=== PATIENT | male | born 1975 | race Caucasian/White ===

== ENCOUNTER 2020-07-07 16:00 | Outpatient (REF) | payer BC, SELFPAY ==
--- NOTE | 2020-07-07 16:16 | XR_ITS ---
EXAMINATION: XR CHEST CLINICAL INFORMATION: Shortness of breath COMPARISON: None TECHNIQUE: 2 views of the chest were obtained. FINDINGS: There is no evidence of acute parenchymal disease, pneumothorax, or pleural effusion. Heart normal size. No evidence of pulmonary edema. There is a rounded density seen overlying the left heart which I do not definitely identified on lateral view question whether this may lie extraneous to the patient. I do not definitely see a hiatal hernia on lateral view and I do not definitely make out a posterior mediastinal mass. XR/XR chest 2V IMPRESSION: No definite acute parenchymal disease. Rounded circumscribed density overlying the left heart not seen on lateral view and may be external to the patient. Clinical evaluation and possible repeat of PA film of the chest could be considered.
[2020-07-07 16:47] LABS: MANUAL DIFF FLAG NO
[2020-07-07 16:49] LABS: Basophils Absolute Auto 0.1 X10*3/uL (0.0-0.2); Basophils Percent Auto 0.7 % (0-2); Eosinophils Absolute Auto 0.2 X10*3/uL (0.0-0.4); Eosinophils Percent Auto 2.6 % (0-4); Hematocrit 44.7 % (42-52); Hemoglobin 14.3 g/dl (14.0-18.0); Imm Gran Abs Auto 0.05 X10*3/uL (0.00-0.03); Imm Gran Pct Auto 0.6 % (0.0-0.4); Lymphocytes Absolute Auto 2.5 X10*3/uL (1.2-4.9); Lymphocytes Percent Auto 29.3 % (20-40); Mean Corpuscular Hemoglobin 28.9 pg (27.0-33.0); Mean Corpuscular Volume 90.3 fL (80-98); Mean Platelet Volume 11.1 fL (9.4-12.4); Monocytes Absolute Auto 0.9 X10*3/uL (0.1-1.2); Neutrophils Absolute Auto 4.7 X10*3/uL (2.0-8.3); Neutrophils Percent Auto 55.8 % (45-73); Platelet Count 183 X10*3/uL (160-400); Red Blood Count 4.95 X10*6/uL (4.60-5.80); Red Cell Distribution Width 12.3 % (11.0-16.0); White Blood Count 8.5 X10*3/uL (4.8-10.8)
[2020-07-07 17:16] LABS: Alanine Aminotransferase 34 U/L (0-40); Albumin Level 4.6 g/dL (3.5-5.0); Alkaline Phosphatase 83 U/L (39-117); Anion Gap 11 (12-20); Aspartate Amino Transferase 19 U/L (5-37); Bilirubin Total 0.5 mg/dL (0.0-1.0); Blood Urea Nitrogen 16 mg/dL (9-16); C Reactive Protein 0.58 mg/dL (< or = 0.50); Calcium 9.1 mg/dL (8.4-10.2); Carbon Dioxide 34 mmol/L (22-29); Chloride 103 mmol/L (96-108); Estimated Glomerular Filt Rate > 60; Glucose Random 100 mg/dL (60-115); Potassium 4.3 mmol/l (3.3-5.1); Sodium 144 mmol/L (135-145); Total Protein 7.3 g/dL (6.5-8.0)
== END 2020-07-07 16:01 | disposition home or self-care (01) ==
LOC: HO.LAB 16:00
PROVIDERS: PCP Internal Medicine; Visit Provider Internal Medicine
DX: R06.02 Shortness of breath (principal); K21.9 Gastro-esophageal reflux disease without esophagitis
CPT/HCPCS: 36415; 71046; 80053; 85025; 86140

== ENCOUNTER 2020-07-29 10:46 | Outpatient (REF) | payer BC, SELFPAY ==
--- NOTE | ~2020-07-29 | CT_ITS ---
EXAMINATION: CT CHEST WITHOUT CONTRAST CLINICAL INFORMATION: Chest pain. Shortness of breath. COMPARISON: Previous chest x-ray 07/07/2020 TECHNIQUE: Multidetector volumetric CT imaging of the chest was done. Axial MIP volume rendering provided. Sagittal and coronal reformatted images were obtained. This CT examination was performed using dose optimization techniques as appropriate, variously including the following: *Automated exposure control *Adjustment of mA and/or kV according to patient size (this includes techniques or standardized protocols for targeted exams where dose is matched to indication/reason for exam; i.e. extremities or head) *Use of iterative reconstruction technique DLP: 248 mGy-cm FINDINGS: LUNGS: There is a 2 mm calcified right upper lobe nodule axial image 121 series 5. There is a 2 mm left upper lobe nodule axial image 166 series 5. There is a 2 mm peripheral or subpleural right upper lobe nodule adjacent to the minor fissure axial image 238 series 5. MEDIASTINUM: The mediastinum is normal. PLEURA: There is no pleural effusion. No pleural mass or thickening. AXILLA: No lymphadenopathy. UPPER ABDOMEN: There is mild diverticulosis of the colon. OSSEOUS STRUCTURES: Unremarkable. CT/CT chest wo con IMPRESSION: Small 2 mm calcified and noncalcified pulmonary nodules. Mild diverticulosis of the colon. According to the UPDATED 2017 Fleischner Society recommendations, the advised follow-up imaging for less than 6 mm pulmonary nodule: Low risk, no chest CT follow-up needed and high risk, optional chest CT follow-up in one year.
== END 2020-07-29 10:47 | disposition home or self-care (01) ==
LOC: HO.CT 10:46
PROVIDERS: PCP Internal Medicine; Visit Provider Internal Medicine
DX: R07.9 Chest pain, unspecified (principal); R06.02 Shortness of breath
CPT/HCPCS: 71250

== ENCOUNTER 2021-06-19 15:13 | Outpatient (REF) | payer BC, SELFPAY ==
[2021-06-19 16:09] LABS: Influenza A PCR NEGATIVE (Negative); Influenza B PCR NEGATIVE (Negative); Resp Syncy Virus RNA Qual PCR NEGATIVE (Negative); SARS COV2 PCR INHOUSE POSITIVE (Negative)
== END 2021-06-19 15:14 | disposition home or self-care (01) ==
LOC: HO.LNP 15:13
PROVIDERS: Visit Provider Internal Medicine
DX: Z20.822 Contact with and (suspected) exposure to COVID-19 (principal)
CPT/HCPCS: 0241U

== ENCOUNTER 2024-07-18 10:41 | Outpatient (REF) | payer OTHER, SELFPAY ==
[2024-07-18 10:57] LABS: MANUAL DIFF FLAG NO
[2024-07-18 11:25] LABS: Basophils Absolute Auto 0.1 X10*3/uL (0.0-0.2); Basophils Percent Auto 0.9 % (0-2); Eosinophils Absolute Auto 0.1 X10*3/uL (0.0-0.4); Eosinophils Percent Auto 2.1 % (0-4); Hematocrit 45.7 % (42.0-52.0); Hemoglobin 15.5 g/dl (14.0-18.0); Imm Gran Abs Auto 0.03 X10*3/uL (0.00-0.03); Imm Gran Pct Auto 0.5 % (0.0-0.4); Lymphocytes Absolute Auto 2.3 X10*3/uL (1.2-4.9); Lymphocytes Percent Auto 40.2 % (20-40); Mean Corpuscular HGB Conc 33.9 g/dl (31.0-36.0); Mean Corpuscular Hemoglobin 29.5 pg (27.0-33.0); Mean Corpuscular Volume 86.9 fL (80.0-98.0); Mean Platelet Volume 10.9 fL (9.4-12.4); Monocytes Absolute Auto 0.5 X10*3/uL (0.1-1.2); Neutrophils Absolute Auto 2.8 x10*3/uL (2.0-8.3); Neutrophils Percent Auto 48.3 % (45-73); Platelet Count 173 X10*3/uL (160-400); Red Blood Count 5.26 X10*6/uL (4.60-5.80); Red Cell Distribution Width 12.4 % (11.0-16.0); White Blood Count 5.7 X10*3/uL (4.8-10.8)
[2024-07-18 11:51] LABS: Alanine Aminotransferase 34 U/L (0-40); Albumin Level 4.4 g/dL (3.5-5.0); Alkaline Phosphatase 78 U/L (39-117); Anion Gap 14 (12-20); Aspartate Amino Transferase 24 U/L (5-37); Bilirubin Total 0.5 mg/dL (0.0-1.0); Blood Urea Nitrogen 18 mg/dL (9-16); Calcium 9.3 mg/dL (8.4-10.2); Carbon Dioxide 27 mmol/L (22-29); Chloride 106 mmol/L (96-108); Cholesterol 150 mg/dL (<200); Estimated Glomerular Filt Rate > 60; Glucose Fasting 94 mg/dL (60-99); HDL Cholesterol 39 mg/dL (>40); LDL Cholesterol Calculated 92 mg/dL (<100); Potassium 4.9 mmol/L (3.3-5.1); Sodium 142 mmol/L (135-145); Total Protein 7.6 g/dL (6.5-8.0); Triglycerides 98 mg/dL (<150)
[2024-07-18 12:19] LABS: Prostate Specific Antigen 0.26 ng/mL (<0.05-4.0)
== END 2024-07-18 10:42 | disposition home or self-care (01) ==
LOC: HO.LAB 10:41
PROVIDERS: PCP Internal Medicine; Visit Provider Internal Medicine
DX: K21.9 Gastro-esophageal reflux disease without esophagitis (principal); E66.9 Obesity, unspecified; Z12.5 Encounter for screening for malignant neoplasm of prostate
CPT/HCPCS: 36415; 80053; 80061; 84153; 85025

== ENCOUNTER 2024-10-05 15:03 | Outpatient (AMB) | payer OTHER, SELFPAY ==
--- NOTE | 2024-10-05 16:00 | AM.OFFWIN_ITS ---
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 Patient Tobacco Use Status: Never used Tobacco Allergies No Known Allergies Allergy (Unverified 10/05/24 16:02) Do you need a note to return to daycare/school/sports/work: Yes HPI HPI Comments History of Present Illness Details 49 y/o Male patient who presents to the walk in clinic with c/o Left sided Jaw Pain and sore-throat since Saturday. Describes the pain as Discomfort and rates it at 2/10. He does c/o GERD symptoms, and he has been eating Spicy food lately. [facility] Medical History (Updated 10/05/24 @ 17:12 by Shelly Julien NP) Cerumen impaction Tonsillar calculus Social History Patient Tobacco Use Status: Never used Tobacco Review of Systems Const All systems reviewed & are unremarkable except as noted in HPI and below Physical Exam Vital Signs: Last Vital Signs Pulse 102 H 10/05/24 16:01 BP 130/90 H 10/05/24 16:01 Pulse Ox 96 10/05/24 16:01 Oxygen Delivery Method Room Air 10/05/24 16:01 Const General: no acute distress Nutritional Appearance: obese Orientation/consciousness: patient oriented x3 HEENT Head: Yes normocephalic Ears: external ears normal and TM abnormal obstructed by cerumen bilateral General nose exam: Normal external nose present Face and sinus: Yes sinuses nontender Mouth: tongue normal, moist mucous membranes and Abnormal oral and palatal mucosa present erythematous and other (White small Stones back throat left side) Throat: Yes uvula midline, Yes abnormal tonsil (Left Tonsil enlarged +3 ), No peritonsillar mass and Yes postnasal drainage Neuro General: patient oriented x3, gait normal and moves all extremities Psych Speech and movement: Normal speech and movement present Assessment & Plan Assessment & Plan (1) Tonsillar calculus: Code(s): J35.8 - Other chronic diseases of tonsils and adenoids Plan: Left Tonsil enlarged, presence of Tonsil Stones. Educated on Proper Oral Hygiene. Ordered Prednisone for swelling NSAIDs for pain relief. Avoid Spicy foods. (2) Cerumen impaction: Code(s): H61.20 - Impacted cerumen, unspecified ear Qualifiers: Laterality: bilateral Qualified Code(s): H61.23 - Impacted cerumen, bilateral Plan: Advised the use of Debrox OTC RTC for B/L Ear Lavage. Medications: New prednisone 20 mg PO DAILY 5 tabs 0RF 5 days J35.8 - Other chronic diseases of tonsils and adenoids Coding Level of Care Code Est Pt Level 4 (01108) Diagnoses Tonsillar calculus J35.8 Bilateral impacted cerumen H61.23 Laterality: bilateral Time Spent (min) 20
[2024-10-05 16:01] VITALS: BP 130/90; PULSE 102; O2SAT 96
== END 2024-10-05 16:45 | disposition home or self-care (01) ==
PROVIDERS: PCP Internal Medicine; Visit Provider Nurse Practitioner Family
DX: J35.8 Other chronic diseases of tonsils and adenoids (principal); H61.23 Impacted cerumen, bilateral

== ENCOUNTER → 2024-10-05 15:03 | Outpatient (BNVA) | payer OTHER, SELFPAY | PROVIDERS: PCP Internal Medicine; Visit Provider Nurse Practitioner Family | DX: Z13.89 Encounter for screening for other disorder (principal) ==

== ENCOUNTER 2024-10-09 11:21 | Outpatient (AMB) | payer OTHER, SELFPAY ==
--- NOTE | 2024-10-09 11:33 | AM.OFFWIN_ITS ---
Intake Vital Signs 10/09/24 11:37 Height 5 ft 7.5 in Weight 225 lb BMI 34.7 BP 128/82 Blood Pressure Location Lt brachial Position Sitting Respiration 16 Pulse 82 Pulse Source Pulse Oximeter Temp 98.1 F Temp Source Oral Pulse Oximetry (%) 97 Oxygen Delivery Method Room Air Intake Visit Reasons: EP re-check ears Intake Note: Pt is here today for his to recheck bilateral ears Patient Tobacco Use Status: Never used Tobacco Allergies No Known Allergies Allergy (Unverified 10/09/24 11:37) HPI HPI Comments History of Present Illness Details History - The patient is a 49-year-old male pres enting with concerns of blocked ears. - The patient experienced a sensation of blockage over the weekend, which led to this visit. - He received Prednisone previously due to tonsillar swelling over a past visit. - The patient reported multiple surgerie s on the right ear for recurring polyps but has an inconsistent history of using ear drops. - There is no reported pain or significa nt changes in hearing. Physical Exam General: Cooperative, healthy appearing, comfortable and no acute distress Orientation/consciousness: Patient oriented x3 Limitations: No limitations Head: Normal to inspection Ears: Hearing grossly normal bilaterally, external ears normal and TM's normal bilaterally, but obstructed with cerumen Nose: Normal external nose present, Normal nares present and No nasal discharge present Face and sinus: Normal facial exam Eyes: Appearance normal, both eyes and all related structures Neck: Normal visual inspection Respiratory: Normal respiratory effort, able to speak in complete sentences, no respiratory distress, not tachypneic, no tripod positioning and no use of accessory muscles Skin: No rashes or lesions noted Neuro: Patient oriented x3 Extremities: Normal to inspection and Yes no clubbing, cyanosis or edema [facility] Medical History (Updated 10/05/24 @ 17:12 by Shelly Julien NP) Cerumen impaction Tonsillar calculus Social History Patient Tobacco Use Status: Never used Tobacco Review of Systems Const All systems reviewed & are unremarkable except as noted in HPI and below Physical Exam Vital Signs: Last Vital Signs Temp 98.1 F 10/09/24 11:37 Pulse 82 10/09/24 11:37 Resp 16 10/09/24 11:37 BP 128/82 10/09/24 11:37 Pulse Ox 97 10/09/24 11:37 Oxygen Delivery Method Room Air 10/09/24 11:37 BMI result Body Mass Index 34.7 Office Procedures Cerumen Removal Details: able to remove from left ear completely, a small amount left in right ear and pt requested we stop. He will use Debrox drops and come back if further flushing is needed. From which ear canal was the cerumen removed: bilateral Removal: irrigation and otoscope w/curette Notes: patient tolerated procedure well, no complications and ear canal clear 54302-Ion Irrigation/Lavage Assessment & Plan Assessment & Plan (1) Cerumen impaction: Code(s): H61.20 - Impacted cerumen, unspecified ear Qualifiers: Laterality: bilateral Qualified Code(s): H61.23 - Impacted cerumen, bilateral Plan: During this visit, I focused on addressing the impacted cerumen causing the sensation of ear blockage. The use of Debrox drops was recommended to facilitate the breakdown of the wax. An ear flushing was performed in our clinic to attempt removal of the cerumen. Able to remove all the cerumen in left ear, some residual in right ear. Considering the patient's history of recurrent ear polyps and prior surgeries, he was advised on regular ear care to reduce future occurrences. No pain or hearing loss was reported. The patient agreed to use the Debrox drops consistently and follow up to confirm resolution. Patient was informed and verbally consented to the use of an ambient scribe for clinic note documentation during this visit Orders: Orders AMB Cerumen Removal Today H61.23 - Impacted cerumen, bilateral Coding Level of Care Code Est Pt Level 3 (39212) Diagnoses Bilateral impacted cerumen H61.23 Laterality: bilateral CPT Codes Office Procedure - CPT: 48411-Wdz Irrigation/Lavage ([id number])
[2024-10-09 11:37] VITALS: BP 128/82; PULSE 82; RESP 16; TEMP 36.7; O2SAT 97; BMI 34.7
== END 2024-10-09 12:15 | disposition home or self-care (01) ==
PROVIDERS: PCP Internal Medicine; Visit Provider Physician Assistant
DX: H61.23 Impacted cerumen, bilateral (principal)

== ENCOUNTER → 2024-10-09 11:21 | Outpatient (BNVA) | payer OTHER, SELFPAY | PROVIDERS: PCP Internal Medicine; Visit Provider Physician Assistant | DX: H61.23 Impacted cerumen, bilateral (principal) | CPT/HCPCS: 69210 ==

== ENCOUNTER 2024-11-05 13:45 | Outpatient (AMB) | payer OTHER, SELFPAY ==
--- NOTE | 2024-11-05 14:06 | MHC.OFFWIV ---
Intake Vital Signs 11/05/24 14:07 Height 5 ft 7.5 in Weight 221 lb BMI 34.1 BP 118/82 Blood Pressure Location Lt brachial Position Sitting Pulse 89 Pulse Source Pulse Oximeter Pulse Oximetry (%) 98 Oxygen Delivery Method Room Air Intake Visit Reasons: EP Back pain Intake Note: Patient here for back pain that has been present for about 1 week. States he lifts heavy parts while at work. Patient Tobacco Use Status: Never used Tobacco Allergies No Known Allergies Allergy (Unverified 11/05/24 14:09) Do you need a note to return to daycare/school/sports/work: Yes HPI HPI Comments History of Present Illness Details 49 y/o Male patient who presents to the walk in clinic with c/o back pain that has been present for about 1 week. 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 Denies bowel or bladder symptoms. COUNTS INCLUDE 234 BEDS AT THE [facility] Medical History (Updated 11/05/24 @ 14:32 by Shelly Julien NP) Lumbar back pain Cerumen impaction Tonsillar calculus Social History Patient Tobacco Use Status: Never used Tobacco Review of Systems Const All systems reviewed & are unremarkable except as noted in HPI and below Physical Exam Vital Signs: Last Vital Signs Pulse 89 11/05/24 14:07 BP 118/82 11/05/24 14:07 Pulse Ox 98 11/05/24 14:07 Oxygen Delivery Method Room Air 11/05/24 14:07 BMI result Body Mass Index 34.1 Const General: no acute distress; No comfortable Nutritional Appearance: obese Orientation/consciousness: patient oriented x3 Back/Spine/Pelvis Back: back tenderness Thoracic/Lumbar Spine: pain with thoraco-lumbar ROM, thoraco-lumbar spasm, thoracic spinal tenderness and lumbar spinal tenderness Neuro General: patient oriented x3, gait normal and moves all extremities Psych Speech and movement: Normal speech and movement present Assessment & Plan Assessment & Plan (1) Lumbar back pain: Code(s): M54.50 - Low back pain, unspecified Plan: Ordered Physical Therapy. NSAIDs and Acetaminophen Ordered Muscle relaxants. Orders: Orders PT Evaluation and Treatment Today M54.50 - Low back pain, unspecified Medications: New lidocaine 5% leave on most painful area for up to 12 hrs 1 patch topical DAILY 30 ea 0RF M54.50 - Low back pain, unspecified cyclobenzaprine 10 mg PO BEDTIME 14 tabs 0RF M54.50 - Low back pain, unspecified ibuprofen 800 mg PO Q8H 20 tabs 0RF M54.50 - Low back pain, unspecified Coding Level of Care Code Est Pt Level 4 (42162) Diagnoses Lumbar back pain M54.50 Time Spent (min) 20
[2024-11-05 14:07] VITALS: BP 118/82; PULSE 89; O2SAT 98; BMI 34.1
== END 2024-11-05 14:34 | disposition home or self-care (01) ==
PROVIDERS: PCP Internal Medicine; Visit Provider Nurse Practitioner Family
DX: M54.50 Low back pain, unspecified (principal)

== ENCOUNTER → 2024-11-05 13:45 | Outpatient (BNVA) | payer OTHER, SELFPAY | PROVIDERS: PCP Internal Medicine; Visit Provider Nurse Practitioner Family ==

== ENCOUNTER 2025-02-26 09:14 | Day surgery (SDC) | payer OTHER, SELFPAY ==
--- OUTSIDE RECORDS SUMMARY | 2025-01-19 12:21 | XMS_ITS | Patient Health Record ---
Author Organization [facility] Address [address] [place] [id number] Care Team Providers Care Television Parts Tester Name Role Phone Chelly (RETIRED) Jamir LYNCH Primary Care Provide r Unavailable Paco Mayfield Unavailable [phone] Reason For Referral No Information Social History Tobacco Use: Social History Observation Description Date Details (start date - stop date) Never Smoker NA - NA Tobacco Control (Standard) Question Answer Notes Tobacco use: Nonsmoker AUDIT-C (Standard) Question Answer Notes Did you have a drink contain ing alcohol in the past year? Yes How often did you have a dri nk containing alcohol in the past year? Never (0 point) How many drinks did you have on a typical day when you were drinking in the past year? 1 or 2 drinks (0 point) How often did you have six o r more drinks on one occasion in the past year? 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 Problems Problem Type SNOMED Code ICD Code Onset Dates Problem Status W/U Status Risk Notes Problem Colon cancer screening (Z12.11) Active confirmed Problem Preprocedural examination ([id number]) Preprocedural examination (Z01.818) Active confirmed Vital Signs Blood pressure diastolic 77 mm Hg 12/15/2024 Height 67.5 in 12/15/2024 Blood pressure systolic 111 mm Hg 12/15/2024 Weight 224 lbs 12/15/2024 BMI 34.56 kg/m2 12/15/2024 Procedures Procedure Date Ordered Date Performed Result Body Sit e COLONOSCOPY 12/15/2024 N/A Encounters Encounter Location Date Provider Diagnosis [facility] [address] [place] [address] 12/15/2024 Paco Mayfield Colon cancer screeni ng Z12.11 and Preprocedural examination Z01.818 Assessments Encounter Date Diagnosis (ICD Code) Assessment Notes Treatment Notes Treatment Clinical Notes Section Notes 12/15/2024 Colon cancer screening (ICD-10 - Z12.11) Overall, Mirian appears quite well. Given his age, good clinical appearance, and family history, I did recommend a colonoscopy for screening purposes. We did review the rationale for that in regard to colon cancer prevention. Full consent has been obtained for this, including risks of bleeding and perforation. The procedure will be done with monitored anesthesia care. We did review that if his father definitely did have colon cancer in his 50s I would then recommend a colonoscopy every 5 years even if this upcoming colonoscopy is negative. He describes that he will try to find out for sure from his mother if indeed his father had colon cancer. Mirian was comfortable with this plan. Thank you again for allowing me to participate in Mirian's care. I shall continue to keep you advised of his progress.. 12/15/2024 Preprocedural examination (ICD-10 - Z01.818) Overall, Mirian appears quite well. Given his age, good clinical appearance, and family history, I did recommend a colonoscopy for screening purposes. We did review the rationale for that in regard to colon cancer prevention. Full consent has been obtained for this, including risks of bleeding and perforation. The procedure will be done with monitored anesthesia care. We did review that if his father definitely did have colon cancer in his 50s I would then recommend a colonoscopy every 5 years even if this upcoming colonoscopy is negative. He describes that he will try to find out for sure from his mother if indeed his father had colon cancer. Mirian was comfortable with this plan. Thank you again for allowing me to participate in Mirian's care. I shall continue to keep you advised of his progress.. Plan Of Treatment Pending Test Test Name Order Date COLONOSCOPY 12/15/2024 Next Appt Details Provider Name:Paco Mayfield , 02/26/2025 11:30:00 AM, [address] [facility] , [place], [place], [id number], Insurance Providers Payer Name Payer Address Payer Phone Subscriber Number Group Number Insured Name Patient Relationship to Insured Coverage Start Date Coverage End Date [facility] [address] [place] [address] [id number] MIRIAN BARBOSA Self - patient is the insured Medical (General) History Medical History History ICD Code Denies DC,DM,CVA,Lung disease,renal dise ase Surgical History Surgery Date(Month/Year) EAR--BENIGN POLYP BROKEN COLLAR BONE
--- NOTE | 2025-02-24 14:07 | HO.ANESPROP2 ---
Documented by User: Sunita Auguste NP 02/24/25 14:07 HPI - Anesthesia Eval Consult details Narrative: 49 yr old male for colonoscopy [facility] Active Problems Active Problems: All Active Problems (Updated 11/05/24 @ 14:32 by Shelly Julien NP) Lumbar back pain (Acute) Cerumen impaction (Acute) Tonsillar calculus (Acute) Past Medical History Medical History Polyp of ear Collar bone fracture Lumbar back pain Cerumen impaction Tonsillar calculus Social History Social History Are you a primary primary care physician to a significant other at home: No Do you presently have visiting nurse or other home services: No Patient Tobacco Use Status: Never used Tobacco Use of substances other than those prescribed or required for medical reasons: No Have you been hit, kicked, punched, or otherwise hurt by someone within the past year? If so, by whom?: No Are you DNR?: No Advance Directives: No Advance Directives Information Provided: Yes Poor oral hygiene: No Meds Allergies Allergy/AdvReac Type Severity Reaction Status Date / Time No Known Allergies Allergy Verified 02/26/25 09:26 Documented by User: Oly Castano MD 02/26/25 10:01 [facility] Past Medical History Medical History Polyp of ear Collar bone fracture Lumbar back pain Cerumen impaction Tonsillar calculus Family History Family history of problems with anesthesia: No Surgical History History of Problems with Anesthesia: No Social History Social History Are you a primary primary care physician to a significant other at home: No Do you presently have visiting nurse or other home services: No Patient Tobacco Use Status: Never used Tobacco Use of substances other than those prescribed or required for medical reasons: No Have you been hit, kicked, punched, or otherwise hurt by someone within the past year? If so, by whom?: No Are you DNR?: No Advance Directives: No Advance Directives Information Provided: Yes Poor oral hygiene: No Meds Allergies Allergy/AdvReac Type Severity Reaction Status Date / Time No Known Allergies Allergy Verified 02/26/25 09:26 Exam Airway Mallampati Class: II (missing a coupke teeth) TM Dist: >3cm Neck ROM: Full Heart: rrr Lungs: cta Assessment and Plan Assessment Anesthesia Assessment: Anesthesia Plan Discussed and Chart Reviewed Final Anesthetic Review Family History of Problems with Anesthesia: No History of Problems with Anesthesia: No NPO: Yes ASA Class: II Final Preanesthetic Review: No Changes in Pt Med Stat, Meds/Allgs Chart Reviewed and Consent Obtained/Reviewed Patient Risk: Low Procedure Risk: Low Anesthetic Plan Anesthetic Plan: MAC: Disposition: Standard PACU
[2025-02-26 09:35] VITALS: BP 144/97; PULSE 117; RESP 14; TEMP 36.8; O2SAT 98; BMI 32.7
[2025-02-26] MEDS: Lactated Ringers 1,000 ML 100 ML IVCONT (09:47)
[2025-02-26 11:53] VITALS: BP 113/60; PULSE 93; RESP 16; TEMP 36.3; O2SAT 95
--- NOTE | 2025-02-26 12:01 | P.BOP_ITS ---
Brief Operative Note Date of Service: 02/26/25 Pre-op diagnosis: Screening Post-op diagnosis: other (Diverticulosis) Procedure: Colonoscopy to the cecum Surgeon: Paco Mayfield MD Anesthesia: MAC Was an Dog Food Dough Mixer used for this Procedure?: No Estimated blood loss (mL): 0 Pathology: none sent Condition: stable Disposition: PACU
[2025-02-26 12:08] VITALS: BP 128/66; PULSE 76; RESP 16; TEMP 36.1; O2SAT 97
--- NOTE | 2025-02-26 12:55 | OP_ITS ---
DATE OF SERVICE: 02/26/2025 SURGEON: Paco Mayfield MD INDICATIONS: The patient presents for evaluation of colorectal cancer screening and family history of colorectal cancer. Full consent has been obtained from him for this, including risks of bleeding and perforation. PREOPERATIVE DIAGNOSIS: POSTOPERATIVE DIAGNOSIS: PROCEDURE PERFORMED: Colonoscopy to the cecum. ESTIMATED BLOOD LOSS: COMPLICATIONS: ANESTHESIA: Medication used, monitored anesthesia care. ASSISTANTS: SPECIMENS: PREOPERATIVE DIAGNOSES: Colorectal cancer screening and family history of colon cancer. POSTOPERATIVE DIAGNOSES: Colorectal cancer screening and family history of colon cancer, sigmoid diverticulosis, and internal hemorrhoids. DESCRIPTION OF PROCEDURE: The patient was placed in the left lateral decubitus position. The digital rectal exam revealed no abnormalities. The Olympus video pediatric colonoscope was entered into the rectum and advanced easily to the cecum. Once in the cecum, I visualized a normal-appearing cecal pouch with appendiceal orifice and a normal-appearing ileocecal valve. The entire cecum appeared normal. Scope was slowly withdrawn assessing all mucosal surfaces carefully. Preparation was excellent. I did not visualize any sign of polyps, colitis, nor angiodysplasia. There was a mild amount of sigmoid diverticulosis. In the rectum, scope was retroflexed visualizing internal hemorrhoids, but no other pathology. The rectal mucosa appeared normal. Scope was straightened and withdrawn from the patient. He tolerated the procedure well and was returned to the recovery area in stable condition. IMPRESSION: 1. Mild diverticulosis. 2. Internal hemorrhoids. PLAN: Given today's negative exam, but a family history of 2 maternal uncles having had colon cancer with 1 being in their 50s and 1 being in their 70s, as well as his father with reported esophageal cancer, I would recommend another screening colonoscopy by age 55. I think this would be appropriate as opposed to waiting the full 10 years. He would otherwise see me as needed. MD SKYE Curran/EMILY / [id number] [id number]
== END 2025-02-26 12:20 | disposition home or self-care (01) ==
PROVIDERS: PCP Internal Medicine; Visit Provider Internal Medicine
PROC: 0DJD8ZZ Inspection of Lower Intestinal Tract, Via Natural or Artificial Opening Endoscopic (ICD-10-PCS; CPT 45378; principal; 2025-02-26 11:30)
DX: Z12.11 Encounter for screening for malignant neoplasm of colon (principal); Z80.0 Family history of malignant neoplasm of digestive organs; K57.30 Diverticulosis of large intestine without perforation or abscess without bleeding; K64.8 Other hemorrhoids
CPT/HCPCS: 45378; J2003; J2704